=== PATIENT | female | born 1975 | race African-American/Black ===

== ENCOUNTER 2016-11-02 20:07 | Emergency (ER) | payer OTHER ==
[~2016-11-02] VITALS: Ht 170.2 cm; Wt 143.0 kg
[~2016-11-02 20:07] MED LIST: BIRTH CONTROL PO
[2016-11-02 20:35] LABS: BASOPHILS % (AUTO) 0.7 % (0.0-2.0); EOSINOPHILS % (AUTO) 1.1 % (1.0-6.0); HEMATOCRIT 41.8 % (36-46); LYMPHOCYTES # (AUTO) 2.4 K/uL (1.0-4.8); MEAN CORPUSCULAR HEMOGLOBIN 29.8 pg (26.0-34.0); MEAN CORPUSCULAR HGB CONC 33.4 G/dL (31.0-37.0); MEAN CORPUSCULAR VOLUME 89 fL (80-100); MONOCYTES # (AUTO) 0.4 K/uL (0.1-1.0); MONOCYTES % (AUTO) 6.3 % (2.0-9.0); NEUTROPHILS # (AUTO) 3.9 K/uL (1.8-7.7); NEUTROPHILS % (AUTO) 56.9 % (40.0-70.0); PLATELET COUNT (AUTO) 253 K/uL (150-450); RED BLOOD CELL COUNT(AUTO) 4.69 MIL/uL (4.00-5.20); RED CELL DISTRIBUTION WIDTH 13.4 % (11.5-14.5); WHITE BLOOD COUNT (AUTO) 6.9 K/uL (4.5-11.0)
[2016-11-02] MEDS ORDERED: CefTRIAXone SODIUM 1 GM/VIAL IM ONE (22:30)
[2016-11-02] MEDS ORDERED: AZITHROMYCIN 250 MG TABLET PO ONE (22:30)
[2016-11-02] MEDS ORDERED: LIDOCAINE HCL/PF 1% 2 ML VIAL IM ONE (22:30)
[2016-11-03 00:12] VITALS: BP 167/103
== END 2016-11-03 01:35 | disposition home or self-care (01) ==
LOC: EMS 20:08
DX: A60.04 Herpesviral vulvovaginitis (principal); N94.6 Dysmenorrhea, unspecified; F17.210 Nicotine dependence, cigarettes, uncomplicated
CPT/HCPCS: 36415; 84703; 85025; 96372; 99284; 99406; J0696; J3490

== ENCOUNTER 2017-12-08 14:30 | Emergency (ER) | payer OTHER ==
[~2017-12-08] VITALS: Ht 175.3 cm; Wt 140.9 kg
[2017-12-08] MEDS ORDERED: IBUPROFEN 800 MG TABLET PO ONE (15:30)
[2017-12-08 16:04] VITALS: BP 136/111
== END 2017-12-08 16:23 | disposition home or self-care (01) ==
LOC: EMS 14:31
DX: S62.625A Displaced fracture of middle phalanx of left ring finger, initial encounter for closed fracture (principal); F17.210 Nicotine dependence, cigarettes, uncomplicated; X58.XXXA Exposure to other specified factors, initial encounter; Y93.89 Activity, other specified; Y92.89 Other specified places as the place of occurrence of the external cause; Y99.8 Other external cause status
CPT/HCPCS: 99284

== ENCOUNTER 2017-12-09 18:32 | Emergency (ER) | payer OTHER ==
[~2017-12-09] VITALS: Ht 172.7 cm; Wt 145.0 kg
[2017-12-09] MEDS ORDERED: IBUPROFEN 800 MG TABLET PO ONE (19:00)
[2017-12-09 19:30] VITALS: BP 144/82
== END 2017-12-09 20:11 | disposition home or self-care (01) ==
LOC: EMS 18:33
DX: S62.625D Displaced fracture of middle phalanx of left ring finger, subsequent encounter for fracture with routine healing (principal); F17.210 Nicotine dependence, cigarettes, uncomplicated; X58.XXXD Exposure to other specified factors, subsequent encounter
CPT/HCPCS: 99283; 99406

== ENCOUNTER 2018-07-07 11:44 | Emergency (ER) | payer OTHER ==
[~2018-07-07] VITALS: Ht 170.2 cm; Wt 140.9 kg
[2018-07-07] MEDS ORDERED: ATOR20TA86 PO (11:50)
[2018-07-07] MEDS ORDERED: HTN PO (11:50)
[2018-07-07] MEDS ORDERED: KETOROLAC TROMETHAMINE 30 MG/ML VIAL IVP ONE (12:30)
[2018-07-07] MEDS ORDERED: SODIUM CHLORIDE 0.9% 1,000 ML IV ONE (12:30)
[2018-07-07] MEDS ORDERED: ONDANSETRON HCL 4 MG/2 ML VIAL IVP ONE (12:30)
[2018-07-07 13:18] LABS: BASOPHILS % (AUTO) 0.6 % (0.0-2.0); EOSINOPHILS % (AUTO) 0.8 % (1.0-6.0); HEMATOCRIT 39.7 % (36-46); HEMOGLOBIN 13.5 g/dL (12.0-16.0); LYMPHOCYTES # (AUTO) 1.9 K/uL (1.0-4.8); LYMPHOCYTES % (AUTO) 32.2 % (22.0-44.0); MEAN CORPUSCULAR HEMOGLOBIN 30.7 pg (26.0-34.0); MEAN CORPUSCULAR HGB CONC 34.1 G/dL (31.0-37.0); MEAN CORPUSCULAR VOLUME 90 fL (80-100); MONOCYTES # (AUTO) 0.4 K/uL (0.1-1.0); MONOCYTES % (AUTO) 7.1 % (2.0-9.0); NEUTROPHILS # (AUTO) 3.5 K/uL (1.8-7.7); NEUTROPHILS % (AUTO) 59.3 % (40.0-70.0); PLATELET COUNT (AUTO) 252 K/uL (150-450); RED BLOOD CELL COUNT(AUTO) 4.41 MIL/uL (4.00-5.20); RED CELL DISTRIBUTION WIDTH 13.6 % (11.5-14.5)
[2018-07-07 13:33] LABS: ANION GAP 9 mmol/L (8-16); CALCIUM, TOTAL 8.5 mg/dL (8.8-10.5); CARBON DIOXIDE 26 mmol/L (22-29); CHLORIDE 105 mmol/L (98-107); CREATININE 0.77 mg/dL (0.60-1.30); GLOMERULAR FILTR. RATE CALC > 60 mL/min (>60); GLUCOSE,RANDOM 92 mg/dL (70-110); POTASSIUM 3.3 mmol/L (3.5-5.1); SODIUM SERUM 140 mmol/L (136-145); UREA NITROGEN, BLOOD 8 mg/dL (7-18)
[2018-07-07 13:45] LABS: ALANINE AMINOTRANSFERASE 23 U/L (12-78); ALBUMIN 2.9 g/dL (3.4-5.0); ALKALINE PHOSPHATASE 82 U/L (46-116); ASPARTATE AMINOTRANSFERASE 30 U/L (15-37); BILIRUBIN,TOTAL 0.4 mg/dL (0.1-1.0); HCG,QUANTITATIVE < 1 mIU/mL (0-6); LIPASE 79 U/L (73-393)
[2018-07-07 14:18] LABS: APPEARANCE,URINE CLOUDY (CLEAR); BILIRUBIN,URINE NEGATIVE (NEGATIVE); GLUCOSE, URINE (UA) NEGATIVE (NEGATIVE); KETONES,URINE NEGATIVE (NEGATIVE); LEUKOCYTE ESTERASE ,URINE NEGATIVE (NEGATIVE); NITRATE,URINE NEGATIVE (NEGATIVE); OCCULT BLOOD,URINE SMALL (NEGATIVE); PH,URINE 6.5 (5.0-8.0); PROTEIN,URINE NEGATIVE (NEGATIVE); UROBILINOGEN,URINE 0.2 mg/dL (<=1.0)
[2018-07-07 14:28] LABS: BACTERIA,URINE None Seen /HPF (None Seen); SQUAMOUS EPITHELIAL CELL,UR Moderate /LPF (None Seen); WBC,URINE 0-2 /HPF (0-5)
[2018-07-07 16:07] VITALS: BP 144/84
== END 2018-07-07 16:50 | disposition home or self-care (01) ==
LOC: EMS 11:46
DX: D25.9 Leiomyoma of uterus, unspecified (principal); E87.6 Hypokalemia; K59.00 Constipation, unspecified; E78.00 Pure hypercholesterolemia, unspecified; I10 Essential (primary) hypertension; E11.9 Type 2 diabetes mellitus without complications; F17.210 Nicotine dependence, cigarettes, uncomplicated; Z79.899 Other long term (current) drug therapy
CPT/HCPCS: 36415; 76856; 80053; 81001; 83690; 84702; 85025; 96361; 96374; 96375; 99285; 99406; J1885; J2405; J7030; 51701

== ENCOUNTER 2018-07-19 17:51 | Emergency (ER) | payer OTHER ==
[~2018-07-19] VITALS: Ht 170.2 cm; Wt 180.9 kg
[~2018-07-19 17:51] MED LIST changes: +ATOR20TA86 PO; +HTN PO
[2018-07-19] MEDS ORDERED: AZITHROMYCIN 250 MG TABLET PO ONE (19:15)
[2018-07-19] MEDS ORDERED: LIDOCAINE/PF 1% 2 ML VIAL IM ONE (19:15)
[2018-07-19] MEDS ORDERED: CefTRIAXone SODIUM 1 GM/VIAL IM ONE (19:15)
[2018-07-19 19:47] VITALS: BP 145/80
== END 2018-07-19 19:55 | disposition home or self-care (01) ==
LOC: EMS 17:52
DX: B00.9 Herpesviral infection, unspecified (principal); J02.9 Acute pharyngitis, unspecified; E66.01 Morbid (severe) obesity due to excess calories; F17.210 Nicotine dependence, cigarettes, uncomplicated; E78.00 Pure hypercholesterolemia, unspecified; I10 Essential (primary) hypertension; G89.29 Other chronic pain; Z72.51 High risk heterosexual behavior; Z68.44 Body mass index [BMI] 60.0-69.9, adult
CPT/HCPCS: 96372; 99283; 99406; J0696; J3490

== ENCOUNTER 2018-09-19 19:12 | Emergency (ER) | payer OTHER ==
[~2018-09-19] VITALS: Ht 170.2 cm; Wt 145.4 kg
[2018-09-19] MEDS ORDERED: DiphenhydrAMINE/ZINC ACET 30 GM CREAM TP ONE (21:30)
[2018-09-19] MEDS ORDERED: CefTRIAXone SODIUM 1 GM/VIAL IM ONE (21:30)
[2018-09-19] MEDS ORDERED: ACYCLOVIR 200 MG CAPSULE PO ONE (21:30)
[2018-09-19] MEDS ORDERED: AZITHROMYCIN 250 MG TABLET PO ONE (21:30)
[2018-09-19] MEDS ORDERED: LIDOCAINE/PF 1% 2 ML VIAL IM ONE (21:30)
[2018-09-19 21:49] VITALS: BP 137/69
== END 2018-09-19 22:02 | disposition home or self-care (01) ==
LOC: EMS 19:12
DX: A60.09 Herpesviral infection of other urogenital tract (principal); I10 Essential (primary) hypertension; E78.00 Pure hypercholesterolemia, unspecified; F17.210 Nicotine dependence, cigarettes, uncomplicated
CPT/HCPCS: 96372; 99284; 99406; J0696; J3490

== ENCOUNTER 2018-11-16 23:24 | Emergency (ER) | payer OTHER ==
[~2018-11-16] VITALS: Ht 170.2 cm; Wt 165.9 kg
[2018-11-17 00:34] LABS: BASOPHILS % (AUTO) 0.8 % (0.0-2.0); EOSINOPHILS % (AUTO) 0.6 % (1.0-6.0); HEMATOCRIT 42.9 % (36-46); HEMOGLOBIN 14.4 g/dL (12.0-16.0); LYMPHOCYTES # (AUTO) 2.2 K/uL (1.0-4.8); LYMPHOCYTES % (AUTO) 29.8 % (22.0-44.0); MEAN CORPUSCULAR HEMOGLOBIN 30.1 pg (26.0-34.0); MEAN CORPUSCULAR HGB CONC 33.7 G/dL (31.0-37.0); MEAN CORPUSCULAR VOLUME 90 fL (80-100); MONOCYTES # (AUTO) 0.5 K/uL (0.1-1.0); MONOCYTES % (AUTO) 6.7 % (2.0-9.0); NEUTROPHILS # (AUTO) 4.7 K/uL (1.8-7.7); NEUTROPHILS % (AUTO) 62.1 % (40.0-70.0); PLATELET COUNT (AUTO) 268 K/uL (150-450); RED BLOOD CELL COUNT(AUTO) 4.79 MIL/uL (4.00-5.20); RED CELL DISTRIBUTION WIDTH 14.3 % (11.5-14.5)
[2018-11-17 00:43] LABS: ANION GAP 10 mmol/L (8-16); CALCIUM, TOTAL 8.6 mg/dL (8.8-10.5); CARBON DIOXIDE 26 mmol/L (22-29); CHLORIDE 104 mmol/L (98-107); CREATININE 0.74 mg/dL (0.60-1.30); GLOMERULAR FILTR. RATE CALC > 60 mL/min (>60); GLUCOSE,RANDOM 98 mg/dL (70-110); POTASSIUM 3.6 mmol/L (3.5-5.1); SODIUM SERUM 140 mmol/L (136-145); UREA NITROGEN, BLOOD 11 mg/dL (7-18)
[2018-11-17] MEDS ORDERED: POVIDONE-IODINE 10% 15 ML SOLUTION UD ONE (00:51)
[2018-11-17 00:54] LABS: ALANINE AMINOTRANSFERASE 22 U/L (12-78); ALBUMIN 2.9 g/dL (3.4-5.0); ALKALINE PHOSPHATASE 83 U/L (46-116); ASPARTATE AMINOTRANSFERASE 25 U/L (15-37); BILIRUBIN,TOTAL 0.4 mg/dL (0.1-1.0); HCG,QUANTITATIVE < 1 mIU/mL (0-6); LIPASE 92 U/L (73-393); TOTAL PROTEIN, SERUM 7.1 g/dL (6.4-8.2)
[2018-11-17 01:38] LABS: APPEARANCE,URINE CLOUDY (CLEAR); BILIRUBIN,URINE NEGATIVE (NEGATIVE); GLUCOSE, URINE (UA) NEGATIVE (NEGATIVE); KETONES,URINE NEGATIVE (NEGATIVE); LEUKOCYTE ESTERASE ,URINE NEGATIVE (NEGATIVE); NITRATE,URINE NEGATIVE (NEGATIVE); OCCULT BLOOD,URINE SMALL (NEGATIVE); PROTEIN,URINE TRACE (NEGATIVE)
[2018-11-17 01:50] LABS: BACTERIA,URINE Few /HPF (None Seen); SQUAMOUS EPITHELIAL CELL,UR Many /LPF (None Seen); WBC,URINE 0-2 /HPF (0-5)
[2018-11-17] MEDS ORDERED: KETOROLAC TROMETHAMINE 60 MG/2 ML VIAL IM ONE (03:45)
[2018-11-17 04:21] VITALS: BP 128/74
== END 2018-11-17 04:34 | disposition home or self-care (01) ==
LOC: EMS 23:25
DX: E66.01 Morbid (severe) obesity due to excess calories (principal); F17.210 Nicotine dependence, cigarettes, uncomplicated; M19.90 Unspecified osteoarthritis, unspecified site; E78.00 Pure hypercholesterolemia, unspecified; I10 Essential (primary) hypertension; Z68.43 Body mass index [BMI] 50.0-59.9, adult
CPT/HCPCS: 36415; 74176; 80053; 81001; 83690; 84702; 85025; 96372; 99284; J1885

== ENCOUNTER 2018-12-23 00:44 | Emergency (ER) | payer OTHER ==
[~2018-12-23] VITALS: Ht 170.2 cm; Wt 145.4 kg
[2018-12-23] MEDS ORDERED: ACYC200C PO (01:00)
[2018-12-23 08:30] LABS: APPEARANCE,URINE CLOUDY (CLEAR); GLUCOSE, URINE (UA) NEGATIVE (NEGATIVE); KETONES,URINE NEGATIVE (NEGATIVE); LEUKOCYTE ESTERASE ,URINE NEGATIVE (NEGATIVE); NITRATE,URINE NEGATIVE (NEGATIVE); OCCULT BLOOD,URINE SMALL (NEGATIVE); PROTEIN,URINE POS 1+ (NEGATIVE); UROBILINOGEN,URINE 0.2 mg/dL (<=1.0)
[2018-12-23 08:35] LABS: BILIRUBIN,URINE PRELIM. POSITIVE (NEGATIVE)
[2018-12-23 08:43] LABS: BACTERIA,URINE None Seen /HPF (None Seen); RBC,URINE None Seen /HPF (0-2); WBC,URINE 0-2 /HPF (0-5)
[2018-12-23 08:44] LABS: SQUAMOUS EPITHELIAL CELL,UR Few /LPF (None Seen)
[2018-12-23 09:03] VITALS: BP 130/83
[2018-12-23] MEDS ORDERED: AZITHROMYCIN 250 MG TABLET PO ONE (09:30)
[2018-12-23] MEDS ORDERED: LIDOCAINE/PF 1% 2 ML VIAL IM ONE (09:30)
[2018-12-23] MEDS ORDERED: CefTRIAXone SODIUM 1 GM/VIAL IM ONE (09:30)
[2018-12-23] MEDS ORDERED: ETHYL CHLORIDE 103.5 ML SPRAY TP ONE (09:30)
== END 2018-12-23 09:41 | disposition home or self-care (01) ==
LOC: EMS 00:44
DX: A60.04 Herpesviral vulvovaginitis (principal); I10 Essential (primary) hypertension; E78.00 Pure hypercholesterolemia, unspecified; F17.210 Nicotine dependence, cigarettes, uncomplicated
CPT/HCPCS: 81001; 84703; 96372; 99283; J0696; J3490

== ENCOUNTER 2019-08-09 10:46 | Emergency (ER) | payer MEDICAID, OTHER ==
[~2019-08-09] VITALS: Ht 170.2 cm; Wt 186.4 kg
[~2019-08-09 10:46] MED LIST changes: +ACYC200C PO
[2019-08-09] MEDS ORDERED: NORE0.3518 PO (11:26)
[2019-08-09] MEDS ORDERED: AMLO5TAB9 PO (11:26)
[2019-08-09] MEDS ORDERED: LOSA50TA64 PO (11:26)
[2019-08-09] MEDS ORDERED: ACYC200C PO (11:26)
[2019-08-09] MEDS ORDERED: KETOROLAC TROMETHAMINE 30 MG/ML VIAL IM ONE (15:00)
[2019-08-09 15:13] LABS: BASOPHILS % (AUTO) 0.9 % (0.0-2.0); EOSINOPHILS % (AUTO) 1.8 % (1.0-6.0); HEMATOCRIT 42.3 % (36-46); HEMOGLOBIN 13.9 g/dL (12.0-16.0); LYMPHOCYTES # (AUTO) 2.1 K/uL (1.0-4.8); LYMPHOCYTES % (AUTO) 35.1 % (22.0-44.0); MEAN CORPUSCULAR HGB CONC 32.9 G/dL (31.0-37.0); MEAN CORPUSCULAR VOLUME 91 fL (80-100); MONOCYTES # (AUTO) 0.4 K/uL (0.1-1.0); MONOCYTES % (AUTO) 6.3 % (2.0-9.0); NEUTROPHILS # (AUTO) 3.4 K/uL (1.8-7.7); NEUTROPHILS % (AUTO) 55.9 % (40.0-70.0); PLATELET COUNT (AUTO) 274 K/uL (150-450); RED BLOOD CELL COUNT(AUTO) 4.64 MIL/uL (4.00-5.20); RED CELL DISTRIBUTION WIDTH 13.8 % (11.5-14.5)
[2019-08-09 15:38] LABS: ALANINE AMINOTRANSFERASE 21 U/L (12-78); ALBUMIN 2.9 g/dL (3.4-5.0); ALKALINE PHOSPHATASE 84 U/L (46-116); ANION GAP 5 mmol/L (8-16); ASPARTATE AMINOTRANSFERASE 21 U/L (15-37); BILIRUBIN,TOTAL 0.2 mg/dL (0.1-1.0); CALCIUM, TOTAL 8.6 mg/dL (8.8-10.5); CARBON DIOXIDE 30 mmol/L (22-29); CHLORIDE 104 mmol/L (98-107); CREATININE 0.79 mg/dL (0.60-1.30); GLOMERULAR FILTR. RATE CALC > 60 mL/min (>60); GLUCOSE,RANDOM 122 mg/dL (70-110); HCG,QUANTITATIVE < 1 mIU/mL (0-6); LIPASE 69 U/L (73-393); SODIUM SERUM 139 mmol/L (136-145); TOTAL PROTEIN, SERUM 7.4 g/dL (6.4-8.2)
[2019-08-09 15:53] LABS: UREA NITROGEN, BLOOD 12 mg/dL (7-18)
[2019-08-09] MEDS ORDERED: AZITHROMYCIN 250 MG TABLET PO ONE (20:30)
[2019-08-09] MEDS ORDERED: CefTRIAXone SODIUM 1 GM/VIAL IM ONE (20:30)
[2019-08-09 22:00] VITALS: BP 116/85
== END 2019-08-09 22:30 | disposition home or self-care (01) ==
LOC: EMS 10:49
DX: D52.9 Folate deficiency anemia, unspecified (principal); K42.9 Umbilical hernia without obstruction or gangrene; E78.00 Pure hypercholesterolemia, unspecified; F17.210 Nicotine dependence, cigarettes, uncomplicated; I10 Essential (primary) hypertension; Z79.899 Other long term (current) drug therapy
CPT/HCPCS: 36415; 74176; 80053; 83690; 84702; 85025; 87210; 87491; 87591; 96372; 99284; J0696; J1885